=== PATIENT | female | born 1945 | race Caucasian/White ===

== ENCOUNTER 2016-06-02 10:22 | Emergency (ER) | payer MEDICARE ==
[~2016-06-02] VITALS: Ht 170.2 cm; Wt 102.0 kg
[~2016-06-02 10:22] MED LIST: ASPI81TA82 PO; LEVO75TA3 PO; LORA-474 PO; VITATAB25 PO
[2016-06-02 10:31] VITALS: BP 141/88; PULSE 89; RESP 18; TEMP 98.4
[2016-06-02] MEDS ORDERED: LORA1TAB12 PO (11:06)
[2016-06-02] MEDS ORDERED: LEVO75TA3 PO (11:06)
[2016-06-02] MEDS ORDERED: CITA10TA4 PO (11:06)
[2016-06-02] MEDS ORDERED: ASPI1TAB69 PO (11:06)
[2016-06-02 11:09] VITALS: BP 168/79; PULSE 82; RESP 17; O2SAT 95
[2016-06-02] MEDS ORDERED: SODIUM CHLOR 0.9% 1000 ML INJ 1,000 ML IV ONE (11:14)
[2016-06-02] MEDS ORDERED: KETOROLAC TROMETHAMINE 30 MG/ML (IVP) VIAL IVP ONE (11:15)
[2016-06-02] MEDS ORDERED: SODIUM CHLORIDE 0.9% FLUSH 5 ML FLUSH IVF PRN (11:15)
[2016-06-02] MEDS ORDERED: ONDANSETRON HCL 4 MG/2 ML VIAL IVP ONE (11:15)
[2016-06-02 11:21] LABS: BLOOD, URINE LARGE (NEG); GLUCOSE,URINE NEG (NEG); KETONE, URINE TRACE mg/dL (NEG); NITRITE,URINE NEG (NEG); PH, URINE 5.5 (5.0-8.5)
[2016-06-02 11:26] LABS: METHOD OF COLLECTION CLEAN CATCH; URINE COLOR YELLOW (YELLW/STRAW)
[2016-06-02 11:27] LABS: BACTERIA, URINE MOD /hpf; COMMENT (UR) CULTURE INDICATED; CULTURE IF INDICATED CULTURE INDICATED; RBC, URINE 100-200 /hpf (0-3); SQUAMOUS EPITHELIAL CELL URINE > 8 /hpf (0-5); WBC, URINE 15-19 /hpf (0-5)
--- NOTE | 2016-06-02 11:47 | PD ---
HPI Chief Complaint: Flank/Kidney Pain Time Seen by Provider: 11:14 Travel History International Travel<30 days: No Contact w/Intl Traveler<30days: No Traveled to known affect area: No History of Present Illness HPI Patient presents with right flank pain since yesterday. Described as colicky in nature. Mild nausea. No vomiting. She does have a history of kidney stones. Denies any chest pain shortness of breath urinary or bowel symptoms. States she is urinating normally. Reports a history of shingles which feel very similar. Taking fluids well. PFSH Past Medical History Hx Anticoagulant Therapy: Yes (ASA 81 MG NIGHTLY) Arthritis: No Asthma: No Blood Disorders: No Anxiety: Yes (Anxiety Disorder/ PANIC ATTACKS) Depression: No Heart Rhythm Problems: Yes ("ARRYTHMIA X 3-4 MONTHS AFTER CATH") Cancer: No Cardiac Catheterization: Yes (LAD STENT 2008) Cardiovascular Problems: Yes (STENT IN LAD) High Cholesterol: No Chest Pain: Yes Congestive Heart Failure: No COPD: No Cerebrovascular Accident: No Diabetes: No Diminished Hearing: No Endocrine: Yes (IDOPATHIC ANAPHYLAXIS) Fibromyalgia: Yes Gastrointestinal Disorders: Yes (IBS) GERD: Yes (NOW RESOLVED) Genitourinary: No Headaches: Yes Hepatitis: No Hiatal Hernia: No Hypertension: No Immune Disorder: Yes (FIBRAMYALGIA) Implanted Vascular Access Dvce: Yes Kidney Stones: Yes (STILL IN KIDNEYS) Medical other: Yes (osteoarthritis) Musculoskeletal: Yes (OSTEOPENIA) Neurologic: Yes (CHRONIC VERTIGO) Psychiatric: Yes Reproductive: No Respiratory: No Immunizations Current: Yes Migraines: Yes Myocardial Infarction: Yes (MAR 2009) Renal Failure: No Seizures: No Sleep Apnea: No Thyroid Disease: Yes (NODULES) Ulcer: No Influenza Vaccination: No Menopausal: Yes Past Surgical History Abdominal Surgery: Yes (gallbladder ,appendectomy) Appendectomy: Yes Body Medical Devices: CARDIAC STENT Cardiac Surgery: Yes (x1 cardiac stent) Cholecystectomy: Yes Coronary Artery Bypass Graft: No Coronary Stent: Yes Ear Surgery: No Eye Surgery: No Genitourinary Surgery: No Gynecologic Surgery: Yes (hysterectomy) Hysterectomy: Yes (1977; LEFT OOPHRECTOMY) Oral Surgery: No Thoracic Surgery: No Other Surgery: Yes Social History Alcohol Use: No Tobacco Use: No (QUIT ) Substance Use: No Allergies-Medications (Allergen,Severity, Reaction): Coded Allergies: Bees (Verified Allergy, Severe, Anaphylaxis, 02/13/16) Codeine (Verified Allergy, Severe, ANAPHLAXIS, 02/13/16) Demerol (Verified Allergy, Severe, Anaphylaxis, 02/13/16) Erythromycin (Unverified Allergy, Severe, lips swelling, 02/13/16) Iodinated Contrast Media (Verified Allergy, Severe, Anaphylaxis, 02/13/16) Iodine (Verified Allergy, Severe, Anaphylaxis, 02/13/16) Penicillin (Verified Allergy, Severe, Anaphylaxis, 02/13/16) Percocet (Unverified Allergy, Severe, HEART STOPS, 02/13/16) fainted Seafood (Verified Allergy, Severe, Anaphylaxis, 02/13/16) Soy Flour (Verified Allergy, Severe, Anaphylaxis, 02/13/16) Sulfa (Verified Allergy, Severe, Anaphylaxis, 02/13/16) White Fish (Verified Allergy, Severe, Anaphylaxis, 02/13/16) Lidocaine (Verified Allergy, Mild, PT DENIES, 02/13/16) PT DENIES Dilaudid (Unverified Allergy, Unknown, CAN'T BREATHE, 02/13/16) Marcaine (Verified Allergy, Unknown, UNKNOWN, 02/13/16) Morphine (Verified Adverse Reaction, Severe, SEVERE ABDOMINAL , 02/13/16) Beta Blockers (Unverified Adverse Reaction, Unknown, LOW HEART RATE AT HS , 02/13/16) Milk (Unverified Adverse Reaction, Unknown, NAUSEA, 02/13/16) Uncoded Allergies: food perservatives (Adverse Reaction, Severe, swelling and shortness of breath, 04/19/11) Reported Meds & Prescriptions Reported Meds & Active Scripts Active Reported Citalopram (Citalopram Hydrobromide) 10 Mg Tab 10 Mg PO DAILY Lorazepam 1 Mg Tab 1-2 Mg PO BID PRN Levothyroxine (Levothyroxine Sodium) 75 Mcg Tab 75 Mcg PO DAILY Aspirin 81 Mg Tabdr 81 Mg PO DAILY Review of Systems General / Constitutional: No: Fever Eyes: No: Visual changes HENT: No: Headaches Cardiovascular: No: Chest Pain or Discomfort Respiratory: No: Shortness of Breath Gastrointestinal: No: Abdominal Pain Genitourinary: Positive: Flank Pain, No: Dysuria Musculoskeletal: No: Pain Skin: No Rash Neurologic: No: Weakness Psychiatric: No: Depression Endocrine: No: Polydipsia Hematologic/Lymphatic: No: Easy Bruising Physical Exam Narrative GENERAL: Well-nourished, well-developed patient. SKIN: Warm and dry. HEAD: Normocephalic. EYES: No scleral icterus. No injection or drainage. NECK: Supple, trachea midline. No JVD or lymphadenopathy. CARDIOVASCULAR: Regular rate and rhythm without murmurs, gallops, or rubs. RESPIRATORY: Breath sounds equal bilaterally. No accessory muscle use. GASTROINTESTINAL: Abdomen soft, non-tender, nondistended. MUSCULOSKELETAL: No cyanosis, or edema. BACK: Nontender without obvious deformity. No CVA tenderness. Data Data Last Documented VS Vital Signs Date Time Temp Pulse Resp B/P Pulse Ox O2 Delivery O2 Flow Rate FiO2 06/02/16 13:13 72 17 158/87 95 Room Air 06/02/16 10:31 98.4 Orders Urinalysis - C+S If Indicated (06/02/16 11:11) Ecg Monitoring (06/02/16 11:14) Iv Access Insert/Monitor (06/02/16 11:14) Ketorolac Inj (Toradol Inj) (06/02/16 11:15) Ondansetron Inj (Zofran Inj) (06/02/16 11:15) Sodium Chloride 0.9% Flush (Ns Flush) (06/02/16 11:15) Sodium Chlor 0.9% 1000 Ml Inj (Ns 1000 M (06/02/16 11:14) Urine Culture (06/02/16 10:45) Ct Abd/Pel W/O Iv Contrast (06/02/16 11:39) Acetaminophen (Tylenol) (06/02/16 13:45) Labs Laboratory Tests Test 06/02/16 10:45 Urine Collection Type CLEAN CATCH Urine Color YELLOW Urine Turbidity SLIGHT Urine pH 5.5 Urine Specific [place] 1.025 Urine Protein 30 mg/dL Urine Glucose (UA) NEG mg/dL Urine Ketones TRACE mg/dL Urine Occult Blood LARGE Urine Nitrite NEG Urine Bilirubin NEG Urine Leukocyte Esterase TRACE Urine RBC 100-200 /hpf Urine WBC 15-19 /hpf Urine Squamous Epithelial > 8 /hpf Cells Urine Bacteria MOD /hpf Microscopic Urinalysis Comment CULTURE INDICATED Urine Collection Time 10:45 MDM Medical Decision Making Medical Screen Exam Complete: Yes Emergency Medical Condition: Yes Differential Diagnosis UTI, hematuria, nephrolithiasis, cystitis, pyelonephritis, shingles Narrative Course Assessment and plan discussed with patient at bedside. Last 72 hours Impressions Abdomen/Pelvis CT 06/02/16 1139 Signed Impressions: Service Date/Time: Thursday, June 02, 2016 12:41 - CONCLUSION: 1. No acute finding is identified within the abdomen or pelvis to explain the right flank pain. There are stable bilateral nonobstructing renal stones. 2. Moderate atherosclerotic disease. Bart Leach MD Diagnosis Primary Impression: Hematuria Additional Impression: Right flank pain Patient Instructions: General Instructions Additional Instructions: Encourage good fluid intake and a cranberry supplement. Encouraged antibiotic prophylactically. Encouraged follow-up with PCP. Discussed the possibility that this could be a reoccurrence of her shingles since it did occur the exact same spot and feels similar to previous episode. Med/Other Pt SpecificInfo: Prescription(s) given Scripts Ciprofloxacin (Cipro)250 Mg Oal254 Mg PO BID 5 Days Ref 0 Prov:Clifton Pérez MD 06/02/16 Disposition: 01 DISCHARGE HOME Condition: Good Clifton Pérez MD Jun 02, 2016 11:47
[2016-06-02 12:03] VITALS: BP 140/73; PULSE 71; RESP 17; O2SAT 96
[2016-06-02 13:13] VITALS: BP 158/87; PULSE 72; RESP 17; O2SAT 95
--- NOTE | 2016-06-02 13:14 | RADHPO ---
EXAM DATE/TIME: 06/02/2016 12:41 [facility] COMPARISON: CT ABDOMEN & PELVIS W/O CONTRAST, February 14, 2016, 2:05. INDICATIONS : Right flank pain for four days. ORAL CONTRAST: No oral contrast ingested. RADIATION DOSE: 24.92 CTDIvol (mGy) MEDICAL HISTORY : Renal calculi. Myocardial infarction. SURGICAL HISTORY : Hysterectomy. Appendectomy.Cholecystectomy. ENCOUNTER: Initial ACUITY: 4 - 6 days PAIN SCALE: 6/10 LOCATION: Right flank TECHNIQUE: Volumetric scanning of the abdomen and pelvis was performed. Using automated exposure control and ad justment of the mA and/or kV according to patient size, radiation dose was kept as low as reasonably achievable to obtain optimal diagnostic quality images. FINDINGS: LOWER LUNGS: The visualized lower lungs are clear. LIVER: Homogeneous density without lesion. There is no dilation of the biliary tree. Gallbladder is absent . SPLEEN: Normal size without lesion. PANCREAS: Within normal limits. KIDNEYS: Normal in size and shape. There is no mass or hydronephrosis. There is a stable 9 x 5 mm right and 7 x 3 mm left nonobstructing renal stone. ADRENAL GLANDS: Within normal limits. VASCULAR: There is no aortic aneurysm. There is atherosclerotic disease of the aorta. BOWEL/MESENTERY: The stomach, small bowel, and colon demonstrate no acute abnormality. There is no free intraperitone al air or fluid. ABDOMINAL WALL: Within normal limits. RETROPERITONEUM: There is no lymphadenopathy. BLADDER: No wall thickening or mass. REPRODUCTIVE: Uterus is absent. INGUINAL: There is no lymphadenopathy or hernia. MUSCULOSKELETAL: No acute osseous abnormality. CONCLUSION: 1. No acute finding is identified within the abdomen or pelvis to explain the right flank pain. There are stable bilateral nonobstructing renal stones. 2. Moderate atherosclerotic disease. Bart Leach MD on June 02, 2016 at 13:08 Board Certified Radiologist. This report was verified electronically.
[2016-06-02] MEDS ORDERED: CIPR250T52 PO (13:44)
[2016-06-02] MEDS ORDERED: ACETAMINOPHEN 325 MG TAB PO ONE (13:45)
[2016-06-02 14:08] VITALS: BP 157/68; PULSE 73; RESP 16; O2SAT 95
== END 2016-06-02 14:38 | disposition home or self-care (01) ==
LOC: PHED 10:22
DX: R31.9 Hematuria, unspecified (principal); R10.9 Unspecified abdominal pain; R11.0 Nausea; E07.9 Disorder of thyroid, unspecified; I25.2 Old myocardial infarction; Z79.82 Long term (current) use of aspirin; Z98.61 Coronary angioplasty status; Z87.442 Personal history of urinary calculi; Z86.59 Personal history of other mental and behavioral disorders; Z86.69 Personal history of other diseases of the nervous system and sense organs; Z87.39 Personal history of other diseases of the musculoskeletal system and connective tissue; Z87.891 Personal history of nicotine dependence
CPT/HCPCS: 74176; 81001; 87086; 96361; 96374; 99284; J2405; J7030

== ENCOUNTER 2016-12-27 14:00 | Emergency (ER) | payer MEDICARE ==
[~2016-12-27] VITALS: Ht 170.2 cm; Wt 104.0 kg
[~2016-12-27 14:00] MED LIST changes: +ACET-822 PO; +ASPI81TA11 PO; -ASPI81TA82 PO; +CHOL1TAB41 PO; +CITA10TA4 PO; -LORA-474 PO; +LORA1TAB12 PO; -VITATAB25 PO
[2016-12-27 14:08] VITALS: BP 178/102; PULSE 87; RESP 16; TEMP 97.7; O2SAT 97
[2016-12-27] MEDS ORDERED: LORA-474 PO (15:12)
[2016-12-27] MEDS ORDERED: LEVO75TA43 PO (15:12)
[2016-12-27 15:22] LABS: BLOOD, URINE LARGE (NEG); GLUCOSE,URINE NEG (NEG); KETONE, URINE NEG (NEG); NITRITE,URINE NEG (NEG); PH, URINE 5.5 (5.0-8.5)
[2016-12-27 15:28] LABS: RBC, URINE INNUM /hpf (0-3); SQUAMOUS EPITHELIAL CELL URINE 0-5 /hpf (0-5); URINE COLOR YELLOW (YELLW/STRAW)
[2016-12-27 15:29] LABS: COMMENT (UR) CULTURE INDICATED; CULTURE IF INDICATED CULTURE INDICATED
[2016-12-27] MEDS ORDERED: CIPR-9 PO (15:54)
--- NOTE | 2016-12-27 15:55 | PD ---
HPI Chief Complaint: Complaint Time Seen by Provider: 15:53 Travel History International Travel<30 days: No Contact w/Intl Traveler<30days: No Traveled to known affect area: No History of Present Illness HPI 71-year-old female reports hematuria since this morning. She's also had nausea and generalized weakness for a few days. She denies dysuria or frequency. No fever. Location genitourinary. Severity moderate. PFSH Past Medical History Hx Anticoagulant Therapy: Yes (ASA) Arthritis: No Asthma: No Blood Disorders: No Anxiety: Yes (Panic attacks ) Depression: No Heart Rhythm Problems: Yes ("Arrhythmia 3-4 months after cardiac cath" ) Cancer: Yes Cardiac Catheterization: Yes Cardiovascular Problems: Yes (STENT IN LAD) High Cholesterol: No Chest Pain: Yes Congestive Heart Failure: No COPD: No Cerebrovascular Accident: No Diabetes: No Diminished Hearing: No Endocrine: Yes (Idiopathic anaphylaxis) Fibromyalgia: Yes Gastrointestinal Disorders: Yes (IBS) GERD: Yes Genitourinary: No Headaches: Yes Hepatitis: No Hiatal Hernia: No Hypertension: No Immune Disorder: Yes (FIBRAMYALGIA) Implanted Vascular Access Dvce: Yes Kidney Stones: Yes Medical other: Yes (OA) Musculoskeletal: Yes (Osteopenia, chronic back and neck pain ) Neurologic: Yes (Chronic vertigo ) Psychiatric: Yes Reproductive: No Respiratory: No Immunizations Current: Yes Migraines: Yes Myocardial Infarction: Yes (2008) Renal Failure: No Seizures: No Sleep Apnea: No Thyroid Disease: Yes (Nodules, hypo-) Ulcer: No Tetanus Vaccination: > 5 Years Influenza Vaccination: No ?: Not Menopausal: Yes Past Surgical History Abdominal Surgery: Yes (gallbladder ,appendectomy) Appendectomy: Yes Body Medical Devices: Cardiac stent Cardiac Surgery: Yes (x1 cardiac stent) Cholecystectomy: Yes Coronary Artery Bypass Graft: No Coronary Stent: Yes (LAD 2008) Ear Surgery: No Eye Surgery: No Genitourinary Surgery: No Gynecologic Surgery: Yes (hysterectomy) Hysterectomy: Yes Oral Surgery: No Thoracic Surgery: No Other Surgery: Yes Social History Alcohol Use: No Tobacco Use: No Substance Use: No Allergies-Medications (Allergen,Severity, Reaction): Coded Allergies: Fish Containing Products (Unverified Allergy, Severe, Anaphylaxis, 12/24/16 ) Iodinated Contrast- Oral and IV Dye (Unverified Allergy, Severe, Anaphylaxis, 12/24/16) Sulfa (Sulfonamide Antibiotics) (Unverified Allergy, Severe, Anaphylaxis, 12/27/16) acetaminophen (Unverified Allergy, Severe, HEART STOPS, 12/27/16) fainted bee venom protein (honey bee) (Unverified Allergy, Severe, Anaphylaxis, ) codeine (Unverified Allergy, Severe, ANAPHLAXIS, 12/27/16) erythromycin base (Unverified Allergy, Severe, lips swelling, 12/27/16) iodine (Unverified Allergy, Severe, Anaphylaxis, 12/27/16) meperidine (Unverified Allergy, Severe, Anaphylaxis, 12/27/16) oxycodone (Unverified Allergy, Severe, HEART STOPS, 12/27/16) fainted penicillin G (Unverified Allergy, Severe, Anaphylaxis, 12/27/16) potassium iodide (Unverified Allergy, Severe, Anaphylaxis, 12/27/16) povidone-iodine (Unverified Allergy, Severe, Anaphylaxis, 12/27/16) sodium iodide (Unverified Allergy, Severe, Anaphylaxis, 12/27/16) sodium iodide (Unverified Allergy, Severe, Anaphylaxis, 12/27/16) soy fiber (Unverified Allergy, Severe, Anaphylaxis, 12/27/16) bupivacaine (Unverified Allergy, Unknown, UNKNOWN, 12/27/16) hydromorphone (Unverified Allergy, Unknown, CAN'T BREATHE, 12/27/16) morphine (Unverified Adverse Reaction, Severe, SEVERE ABDOMINAL , 12/27/16) acebutolol (Unverified Adverse Reaction, Unknown, LOW HEART RATE AT HS, ) atenolol (Unverified Adverse Reaction, Unknown, LOW HEART RATE AT HS, 12/27) betaxolol (Unverified Adverse Reaction, Unknown, LOW HEART RATE AT HS, ) carvedilol (Unverified Adverse Reaction, Unknown, LOW HEART RATE AT HS, ) labetalol (Unverified Adverse Reaction, Unknown, LOW HEART RATE AT HS, ) metoprolol (Unverified Adverse Reaction, Unknown, LOW HEART RATE AT HS, ) milk (Unverified Adverse Reaction, Unknown, NAUSEA, 12/27/16) nebivolol (Unverified Adverse Reaction, Unknown, LOW HEART RATE AT HS, ) pindolol (Unverified Adverse Reaction, Unknown, LOW HEART RATE AT HS, 12/27) propranolol (Unverified Adverse Reaction, Unknown, LOW HEART RATE AT HS, ) sotalol (Unverified Adverse Reaction, Unknown, LOW HEART RATE AT HS, ) timolol (Unverified Adverse Reaction, Unknown, LOW HEART RATE AT HS, ) Uncoded Allergies: food perservatives (Adverse Reaction, Severe, swelling and shortness of breath, 04/19/11) Reported Meds & Prescriptions Reported Meds & Active Scripts Active Cipro (Ciprofloxacin HCl) 500 Mg Tab 500 Mg PO BID 5 Days Reported Levoxyl (Levothyroxine Sodium) 75 Mcg Tab 75 Mcg PO DAILY Ativan (Lorazepam) 1 Mg Tab 1 Mg PO HS Aspirin EC (Aspirin) 81 Mg Tabdr 81 Mg PO DAILY Citalopram (Citalopram Hydrobromide) 10 Mg Tab 5 Mg PO DAILY Review of Systems Except as stated in HPI: all other systems reviewed are Neg Physical Exam Narrative GENERAL: 71 yo F WNWD, NAD SKIN: Warm and dry. HEAD: Atraumatic. Normocephalic. EYES: Pupils equal and round. No scleral icterus. No injection or drainage. ENT: No nasal bleeding or discharge. Mucous membranes pink and moist. NECK: Trachea midline. No JVD. CARDIOVASCULAR: Regular rate and rhythm. RESPIRATORY: No accessory muscle use. Clear to auscultation. Breath sounds equal bilaterally. GASTROINTESTINAL: Abdomen soft, non-tender, nondistended. Hepatic and splenic margins not palpable. MUSCULOSKELETAL: Extremities without clubbing, cyanosis, or edema. No obvious deformities. NEUROLOGICAL: Awake and alert. No obvious cranial nerve deficits. Motor grossly within normal limits. Five out of 5 muscle strength in the arms and legs. Normal speech. PSYCHIATRIC: Appropriate mood and affect; insight and judgment normal. Data Data Last Documented VS Vital Signs Date Time Temp Pulse Resp B/P Pulse Ox O2 Delivery O2 Flow Rate FiO2 12/27/16 14:08 97.7 87 16 178/102 97 VS reivewed Orders Urinalysis - C+S If Indicated (12/27/16 15:13) Urine Culture (12/27/16 15:15) Labs Laboratory Tests Test 12/27/16 15:15 Urine Color YELLOW Urine Turbidity CLEAR Urine pH 5.5 Urine Specific [place] 1.016 Urine Protein 30 mg/dL Urine Glucose (UA) NEG mg/dL Urine Ketones NEG mg/dL Urine Occult Blood LARGE Urine Nitrite NEG Urine Bilirubin NEG Urine Leukocyte Esterase TRACE Urine RBC INNUM /hpf Urine WBC 20-24 /hpf Urine WBC Clumps FEW Urine Squamous Epithelial 0-5 /hpf Cells Microscopic Urinalysis Comment CULTURE INDICATED MDM Medical Decision Making Medical Screen Exam Complete: Yes Emergency Medical Condition: Yes Medical Record Reviewed: Yes Differential Diagnosis IUP, UTI, ectopic , ov torsion, appendicitis, TOA, cervicitis, BV, Trichomoniasis, ov cyst, hernia, mittelschmerz, pain from menstruation Narrative Course Urinalysis shows hemorrhagic cystitis, Cipro prescribed as the patient reports to be effective for her and that she has many antibiotic allergies. Return precautions discussed Diagnosis Primary Impression: Hemorrhagic cystitis Referrals: Primary Care Physician 2 days Additional Instructions: You have a choice when it comes to health care, and we are glad that you chose [facility]. Hopefully, we have met your expectations on today's visit. You are welcome to return to [facility] at any time, as we are committed to meeting the health care needs of our community. Med/Other Pt SpecificInfo: Prescription(s) given Scripts Ciprofloxacin (Cipro)500 Mg [id number] Mg PO BID 5 Days Ref 0 Prov:Efra De Anda MD 12/27/16 Disposition: 01 DISCHARGE HOME Condition: Stable Efar De Anda MD Dec 27, 2016 15:55
== END 2016-12-27 16:00 | disposition home or self-care (01) ==
LOC: PHED 14:00
DX: N30.91 Cystitis, unspecified with hematuria (principal); R11.0 Nausea; R53.1 Weakness; E07.9 Disorder of thyroid, unspecified; I25.2 Old myocardial infarction; Z79.82 Long term (current) use of aspirin; Z86.59 Personal history of other mental and behavioral disorders; Z86.79 Personal history of other diseases of the circulatory system; Z87.39 Personal history of other diseases of the musculoskeletal system and connective tissue; Z87.19 Personal history of other diseases of the digestive system; Z86.69 Personal history of other diseases of the nervous system and sense organs; Z87.442 Personal history of urinary calculi
CPT/HCPCS: 81001; 87086; 99283